=== PATIENT | female | born 1955 | race Caucasian/White ===

== ENCOUNTER 2017-08-22 14:45 | Emergency (ER) | payer OTHER ==
[2017-08-22] MEDS ORDERED: Ketorolac 60 MG/2 ML SDV IM ONE (15:00)
[2017-08-22 15:02] VITALS: BP 138/73
--- NOTE | 2017-08-22 15:13 | EDM.PDOC ---
ED HPI GENERAL MEDICAL PROBLEM - General Chief Complaint: Upper Extremity Injury/Pain Stated Complaint: FALL...LEFT WRIST INJURY AND TAILBONE Time Seen by Provider: 08/22/17 14:50 Source of Information: Reports: Patient - History of Present Illness INITIAL COMMENTS - FREE TEXT/NARRATIVE: 62 YO WF presents to ER after slip and fall while ice skating today. Pt reports she lost her balance and fell backward landing on her buttock and breaking her fall with her left side/wrist. Pt denies any head injury or loss of consciousness. Pt complaining of right wrist and low back pain. Pt able to ambulate with minimal difficulty. Onset: Today Duration: Hour(s): (1) Location: Reports: Back, Upper Extremity, Left Quality: Reports: Ache Severity: Mild Improves with: Reports: Rest Worsens with: Reports: Movement Context: Reports: Trauma Associated Symptoms: Reports: No Other Symptoms Left Wrist Pain Score (Numeric/FACES): 9 Bilateral Lower Back Pain Score (Numeric/FACES): 10 - Related Data Allergies Allergy/AdvReac Type Severity Reaction Status Date / Time adalimumab [From Humira] Allergy Hives Verified 08/22/17 14:54 celecoxib [From Celebrex] Allergy Hives Verified 08/22/17 14:54 cephalexin Allergy Hives Verified 08/22/17 14:54 ciprofloxacin Allergy Hives Verified 08/22/17 14:54 ether Allergy Shortness Verified 08/22/17 14:54 of Breath hydroxychloroquine sulfate Allergy Hives Verified 08/22/17 14:54 [From Plaquenil] naproxen Allergy Hives Verified 08/22/17 14:54 Sulfa (Sulfonamide Allergy Hives Verified 08/22/17 14:54 Antibiotics) sulfamethoxazole Allergy Hives Verified 08/22/17 14:54 [From Bactrim] trimethoprim [From Bactrim] Allergy Hives Verified 08/22/17 14:54 Home Meds: Home Meds Sertraline [Zoloft] 100 mg PO DAILY 10/29/15 [History] Cyclobenzaprine [Flexeril] 10 mg PO TID PRN #10 tab 08/22/17 [Rx] Ibuprofen [Motrin] 600 mg PO Q6H #15 tab 08/22/17 [Rx] Lansoprazole [Prevacid] 30 mg PO DAILY 08/22/17 [History] traMADol [Ultram] 50 mg PO Q6H PRN #10 tab 08/22/17 [Rx] Past Medical History HEENT History: Reports: Impaired Vision Cardiovascular History: Reports: PVD Gastrointestinal History: Reports: GERD, Other (See Below) Other Gastrointestinal History: admitted for acute gastroenteritis Genitourinary History: Reports: Other (See Below) Other Genitourinary History: bladder prolapse, currently held in place with mesh 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: Musculoskeletal History: Reports: RA Neurological History: Reports: Migraines Psychiatric History: Reports: Anxiety, Depression Hematologic History: Reports: Anesthesia Reaction Dermatologic History: Reports: Other (See Below) Other Dermatologic History: Sjogren's syndrome - Infectious Disease History Infectious Disease History: Reports: Chicken Pox, Influenza, Measles - Past Surgical History HEENT Surgical History: Reports: Naso-Sinus Surgery Social & Family History - Family History Cardiac: Reports: Heart Failure Endocrine/Metabolic: Reports: Diabetes, type II Oncologic: Reports: Ovarian - Tobacco Use Smoking Status *Q: Former Smoker Years of Tobacco use: 20 Packs/Tins Daily: 1 Used Tobacco, but Quit: Yes Month Tobacco Last Used: 384 Second Hand Smoke Exposure: No Review of Systems - Review of Systems Review Of Systems: See Below Constitutional: Reports: No Symptoms Eyes: Reports: No Symptoms Ears: Reports: No Symptoms Nose: Reports: No Symptoms Mouth/Throat: Reports: No Symptoms Respiratory: Reports: No Symptoms Cardiovascular: Reports: No Symptoms GI/Abdominal: Reports: No Symptoms Genitourinary: Reports: No Symptoms Musculoskeletal: Reports: Back Pain, Other (left wrist pain) Skin: Reports: No Symptoms Neurological: Reports: No Symptoms Psychiatric: Reports: No Symptoms ED EXAM, GENERAL - Physical Exam Exam: See Below Exam Limited By: No Limitations General Appearance: Alert, WD/WN, No Apparent Distress Eye Exam: Bilateral Eye: PERRL Throat/Mouth: Normal Inspection, Normal Lips, Normal Teeth, Normal Gums, Normal Oropharynx, Normal Voice, No Airway Compromise Head: Atraumatic, Normocephalic Neck: Normal Inspection, Supple, Non-Tender, Full Range of Motion Respiratory/Chest: No Respiratory Distress, Lungs Clear, Normal Breath Sounds, No Accessory Muscle Use, Chest Non-Tender Cardiovascular: Normal Peripheral Pulses, Regular Rate, Rhythm, No Edema, No Gallop, No JVD, No Murmur, No Rub GI/Abdominal: Normal Bowel Sounds, Soft, Non-Tender, No Organomegaly, No Distention, No Abnormal Bruit, No Mass Back Exam: Full Range of Motion, Muscle Spasm, Paraspinal Tenderness (right side lumbar spine). No: Vertebral Tenderness Extremities: Normal Capillary Refill, Arm Pain (left wrist pain) Neurological: Alert, Oriented, CN II-XII Intact, Normal Cognition, Normal Gait, Normal Reflexes, No Motor/Sensory Deficits Course - Vital Signs Last Recorded V/S: Last Vital Signs Temp 36.3 C 08/22/17 14:57 Pulse 72 08/22/17 14:57 Resp 16 08/22/17 14:57 BP 138/73 08/22/17 14:57 Pulse Ox 97 08/22/17 14:57 - Orders/Labs/Meds Orders: Active Orders 24 hr Category Date Time Status Lumbar Spine 2 or 3V [CR] Stat Exams 08/22/17 15:00 Ordered Wrist Comp Min 3V Lt [CR] Stat Exams 08/22/17 15:00 Ordered Meds: Medications Discontinued Medications Generic Name Dose Route Start Last Admin Trade Name Freq PRN Reason Stop Dose Admin Ketorolac Tromethamine 60 mg 08/22/17 15:00 08/22/17 15:05 Toradol IM 08/22/17 15:01 60 mg ONETIME ONE Administration - Radiology Interpretation Free Text/Narrative:: right wrist- comminuted impacted left distal radius fracture lumbar spine- NAD Departure - Departure Time of Disposition: 15:50 Disposition: Home, Self-Care 01 Condition: Good Clinical Impression: Fracture of radius Qualifiers: Encounter type: initial encounter Radius location: distal Fracture type: closed Laterality: left Lumbar strain Qualifiers: Encounter type: initial encounter Qualified Code(s): S39.012A - Strain of muscle, fascia and tendon of lower back, initial encounter - Discharge Information Prescriptions: Cyclobenzaprine [Flexeril] 10 mg PO TID PRN #10 tab PRN Reason: Muscle Spasm Ibuprofen [Motrin] 600 mg PO Q6H #15 tab traMADol [Ultram] 50 mg PO Q6H PRN #10 tab PRN Reason: Pain Instructions: Wrist Fracture Treated With Immobilization, [id number], Cast or Splint Care, [id number], Back Pain, Adult Referrals: Liam Garcia [employer] [Primary Care Provider] - Forms: ED Department Discharge - My Orders Last 24 Hours: My Active Orders 08/22/17 15:00 Lumbar Spine 2 or 3V [CR] Stat Wrist Comp Min 3V Lt [CR] Stat - Assessment/Plan Last 24 Hours: My Active Orders 08/22/17 15:00 Lumbar Spine 2 or 3V [CR] Stat Wrist Comp Min 3V Lt [CR] Stat Assessment:: 1. comminuted and impacted nondisplaced distal radius fracture 2. lumbar contusion/sprain Plan: 1.left thumb spica for immobilization 2. discharge home 3. motrin 600mg po q6/flexeril 10mg po tid prn/ultram 50mg po q6 for pain PRN 4. follow up with ortho Dr Holder for further management of wrist fracture 5. return to ER for wrosening symptoms
[2017-08-22] MEDS ORDERED: Cyclobenzaprine 10 MG Tab PO PRN ×2 (15:53→18:42)
[2017-08-22] MEDS ORDERED: Ibuprofen 600 MG Tab PO SCH (16:00)
[2017-08-22] MEDS ORDERED: traMADol 50 MG Tab PO SCH (16:00)
[2017-08-22] MEDS ORDERED: traMADol 50 MG Tab PO PRN (16:00)
[2017-08-22] MEDS ORDERED: Ibuprofen 600 MG Tab PO PRN (18:43)
== END 2017-08-22 16:35 | disposition home or self-care (01) ==
LOC: KA.ED 14:45
DX: S52.572A Other intraarticular fracture of lower end of left radius, initial encounter for closed fracture (principal); W00.0XXA Fall on same level due to ice and snow, initial encounter; Z88.1 Allergy status to other antibiotic agents; Z88.8 Allergy status to other drugs, medicaments and biological substances; Z88.2 Allergy status to sulfonamides; Z79.899 Other long term (current) drug therapy; Z87.891 Personal history of nicotine dependence
CPT/HCPCS: 29125; 72100; 73110-LT; 96372; 99283; A9270-GY; J1885

== ENCOUNTER 2022-12-07 21:15 | Emergency (ER) | payer OTHER ==
[2022-12-07 22:00] LABS: BASOPHILS ABSOLUTE AUTO 0.01 10^3/uL (0.00-0.10); BASOPHILS PERCENT AUTO 0.1 % (0.0-1.0); EOSINOPHILS ABSOLUTE AUTO 0.12 10^3/uL (0.10-0.30); EOSINOPHILS PERCENT AUTO 1.5 % (1.0-3.0); HEMATOCRIT 42.3 % (37.0-47.0); HEMOGLOBIN 13.6 g/dL (12.0-16.0); LYMPHOCYTES ABSOLUTE AUTO 1.35 10^3/uL (1.00-4.00); LYMPHOCYTES PERCENT AUTO 16.9 % (20.0-40.0); MEAN CORPUSCULAR HEMOGLOBIN 27.1 pg (27.0-31.0); MEAN CORPUSCULAR HGB CONC 32.2 g/dL (32.0-36.0); MEAN CORPUSCULAR VOLUME 84.4 fL (82.0-92.0); MEAN PLATELET VOLUME 10.4 fL (7.4-10.4); MONOCYTES ABSOLUTE AUTO 0.29 10^3/uL (0.10-0.80); MONOCYTES PERCENT AUTO 3.6 % (2.0-8.0); NEUTROPHILS ABSOLUTE AUTO 6.21 10^3/uL (2.50-7.00); NEUTROPHILS PERCENT AUTO 77.9 % (50.0-70.0); PLATELET COUNT,PLT 128 10^3/uL (150-400); RED BLOOD CELL COUNT 5.01 10^6/uL (3.80-5.50); RED CELL DISTRIBUTION WIDTH 13.2 % (11.5-14.5); WHITE BLOOD CELL COUNT,WBC 7.98 10^3/uL (5.00-10.00)
[2022-12-07] MEDS ORDERED: Phenazopyridine 100 MG Tab PO ONE (22:00)
[2022-12-07 22:06] LABS: APPEARANCE,URINE SLIGHTLY CLOUDY (CLEAR); BILIRUBIN,URINE MODERATE (NEGATIVE); COLOR,URINE RED (YELLOW); GLUCOSE,URINE NEGATIVE (NEGATIVE); KETONES,URINE 15 mg/dL (NEGATIVE); LEUKOCYTE ESTERASE,URINE LARGE (NEGATIVE); NITRITE,URINE POSITIVE (NEGATIVE); OCCULT BLOOD,URINE LARGE (NEGATIVE); PROTEIN,URINE >=300 mg/dL (NEGATIVE)
[2022-12-07 22:10] LABS: BACTERIA,URINE RARE /HPF (NONE TO FEW); EPITHELIAL CELLS,URINE RARE /LPF; RBC,URINE >100 /HPF (0-5)
[2022-12-07 22:18] LABS: ALBUMIN 4.1 g/dL (3.40-5.00); ANION GAP 11.7 mmol/L (5-15); BILIRUBIN TOTAL 0.3 mg/dL (0.2-1.0); CALCIUM 9.1 mg/dL (8.7-10.3); CARBON DIOXIDE,CO2 31.1 mmol/L (21.0-32.0); CREATININE 0.84 mg/dL (0.51-1.17); EST CRCL DRUG DOSING (CG) 54.98 mL/min; POTASSIUM,K 4.8 mmol/L (3.5-5.1); PROTEIN TOTAL,TP 7.5 g/dL (6.4-8.2)
[2022-12-07] MEDS ORDERED: Nitrofurantoin Monohydrate/Macrocrystalline 100 MG Cap PO ONE (22:22)
[2022-12-07] MEDS ORDERED: Phenazopyridine 100 MG Tab ONE (22:29)
[2022-12-07 23:00] VITALS: BP 142/76; PULSE 70
[2022-12-08] MEDS ORDERED: Phenazopyridine 100 MG Tab PO ONE (08:00)
== END 2022-12-07 22:45 | disposition home or self-care (01) ==
LOC: KA.ED 21:15
DX: N39.0 Urinary tract infection, site not specified (principal); R31.9 Hematuria, unspecified; I10 Essential (primary) hypertension; K21.9 Gastro-esophageal reflux disease without esophagitis; Z88.0 Allergy status to penicillin; Z88.1 Allergy status to other antibiotic agents; Z88.2 Allergy status to sulfonamides; Z88.6 Allergy status to analgesic agent; Z79.899 Other long term (current) drug therapy
CPT/HCPCS: 36415; 80053; 81001; 85025; 99283; 99284; A9270

== ENCOUNTER 2023-12-18 12:33 | Emergency (ER) | payer OTHER ==
[2023-12-18 13:09] LABS: BASOPHILS ABSOLUTE AUTO 0.01 10^3/uL (0.00-0.10); BASOPHILS PERCENT AUTO 0.2 % (0.0-1.0); EOSINOPHILS ABSOLUTE AUTO 0.06 10^3/uL (0.10-0.30); EOSINOPHILS PERCENT AUTO 1.1 % (1.0-3.0); HEMATOCRIT 45.6 % (37.0-47.0); HEMOGLOBIN 15.9 g/dL (12.0-16.0); IMMATURE GRAN ABSOLUTE AUTO 0.01 10^3/uL (0.00-0.50); IMMATURE GRAN PERCENT AUTO 0.2 % (0.0-5.0); LYMPHOCYTES ABSOLUTE AUTO 1.09 10^3/uL (1.00-4.00); LYMPHOCYTES PERCENT AUTO 20.7 % (20.0-40.0); MEAN CORPUSCULAR HEMOGLOBIN 29.6 pg (27.0-31.0); MEAN CORPUSCULAR HGB CONC 34.9 g/dL (32.0-36.0); MEAN CORPUSCULAR VOLUME 84.8 fL (82.0-92.0); MONOCYTES ABSOLUTE AUTO 0.37 10^3/uL (0.10-0.80); NEUTROPHILS ABSOLUTE AUTO 3.73 10^3/uL (2.50-7.00); NEUTROPHILS PERCENT AUTO 70.8 % (50.0-70.0); PLATELET COUNT,PLT 124 10^3/uL (150-400); RED BLOOD CELL COUNT 5.38 10^6/uL (3.80-5.50); RED CELL DISTRIBUTION WIDTH 13.3 % (11.5-14.5); WHITE BLOOD CELL COUNT,WBC 5.27 10^3/uL (5.00-10.00)
[2023-12-18 13:26] LABS: ALBUMIN 4.37 g/dL (3.40-5.00); ANION GAP 10.9 mmol/L (5-15); BILIRUBIN TOTAL 0.9 mg/dL (0.2-1.0); CALCIUM 9.5 mg/dL (8.7-10.3); CARBON DIOXIDE,CO2 28.6 mmol/L (21.0-32.0); CREATININE 0.67 mg/dL (0.51-1.17); EST CRCL DRUG DOSING (CG) 71.32 mL/min; POTASSIUM,K 3.5 mmol/L (3.5-5.1); PROTEIN TOTAL,TP 8.2 g/dL (6.4-8.2)
[2023-12-18] MEDS: Sodium Chloride 0.9% 1,000 ML IV ONE ×2 (13:28→14:31)
[2023-12-18] MEDS: Ondansetron 4 MG/2 ML SDV IVPUSH ONE (13:45)
[2023-12-18] MEDS: Sodium Chloride 0.9% 50 ML IV SCH (14:57)
[2023-12-18] MEDS: Iopamidol 755 Mg/ML 100 ML Bottle IV ONE (14:57)
[2023-12-18 15:12] LABS: INFLUENZA A NAA NEGATIVE (NEGATIVE); INFLUENZA B NAA NEGATIVE (NEGATIVE); RESPIRATORY SYNCYTIAL VIR NAA NEGATIVE (NEGATIVE)
[2023-12-18 15:16] LABS: CORONAVIRUS COVID-19 NAA NEGATIVE (NEGATIVE)
[2023-12-18 15:29] VITALS: BP 141/64; PULSE 71
== END 2023-12-18 16:25 | disposition home or self-care (01) ==
LOC: KA.ED 12:33
DX: E86.0 Dehydration (principal); R10.13 Epigastric pain; I10 Essential (primary) hypertension; Z88.8 Allergy status to other drugs, medicaments and biological substances; Z88.1 Allergy status to other antibiotic agents; Z88.0 Allergy status to penicillin; Z88.2 Allergy status to sulfonamides; Z79.51 Long term (current) use of inhaled steroids; Z79.899 Other long term (current) drug therapy; Z90.49 Acquired absence of other specified parts of digestive tract; Z90.710 Acquired absence of both cervix and uterus
CPT/HCPCS: 0241U; 36415; 74177; 80053; 83690; 85025; 96361; 96374; 99284; J2405; J3490; J7030; Q9967

== ENCOUNTER 2024-07-03 11:28 | Emergency (ER) | payer MEDICARE, OTHER ==
[2024-07-03] MEDS: Ondansetron 4 MG/2 ML SDV IVPUSH ONE (12:01)
[2024-07-03] MEDS: Sodium Chloride 0.9% 1,000 ML IV ONE ×2 (12:01→13:06)
[2024-07-03 12:02] LABS: ALANINE AMINOTRANSFERASE,ALT 20 U/L (14-63); ALBUMIN 4.02 g/dL (3.40-5.00); ALKALINE PHOSPHATASE 80 U/L (46-116); ANION GAP 12.7 mmol/L (5-15); ASPARTATE AMNIOTRANSFERASE,AST 21 U/L (15-37); BASOPHILS ABSOLUTE AUTO 0.01 10^3/uL (0.00-0.10); BASOPHILS PERCENT AUTO 0.3 % (0.0-1.0); BILIRUBIN TOTAL 0.6 mg/dL (0.2-1.0); BLOOD UREA NITROGEN,BUN 8 mg/dL (7-18); CALCIUM 8.9 mg/dL (8.7-10.3); CARBON DIOXIDE,CO2 29.9 mmol/L (21.0-32.0); CHLORIDE,CL 101 mmol/L (98-107); CREATININE 0.72 mg/dL (0.51-1.17); EOSINOPHILS ABSOLUTE AUTO 0.01 10^3/uL (0.10-0.30); EOSINOPHILS PERCENT AUTO 0.3 % (1.0-3.0); GLUCOSE RANDOM 129 mg/dL (70-140); HEMATOCRIT 42.4 % (37.0-47.0); HEMOGLOBIN 14.3 g/dL (12.0-16.0); LYMPHOCYTES ABSOLUTE AUTO 1.07 10^3/uL (1.00-4.00); LYMPHOCYTES PERCENT AUTO 29.3 % (20.0-40.0); MEAN CORPUSCULAR HGB CONC 33.7 g/dL (32.0-36.0); MEAN CORPUSCULAR VOLUME 88.9 fL (82.0-92.0); MONOCYTES ABSOLUTE AUTO 0.31 10^3/uL (0.10-0.80); MONOCYTES PERCENT AUTO 8.5 % (2.0-8.0); NEUTROPHILS ABSOLUTE AUTO 2.25 10^3/uL (2.50-7.00); NEUTROPHILS PERCENT AUTO 61.6 % (50.0-70.0); PLATELET COUNT,PLT 113 10^3/uL (150-400); POTASSIUM,K 4.6 mmol/L (3.5-5.1); PROTEIN TOTAL,TP 7.1 g/dL (6.4-8.2); RED BLOOD CELL COUNT 4.77 10^6/uL (3.80-5.50); RED CELL DISTRIBUTION WIDTH 12.7 % (11.5-14.5); SODIUM,NA 139 mmol/L (136-145); WHITE BLOOD CELL COUNT,WBC 3.65 10^3/uL (5.00-10.00)
[2024-07-03 12:03] LABS: ESTIMATED GFR 92 mL/min (>=60)
[2024-07-03 12:06] VITALS: BP 155/80; PULSE 63
[2024-07-03] MEDS: Ondansetron 4 MG Tab.DIS PO ONE (13:10)
== END 2024-07-03 14:36 | disposition home or self-care (01) ==
LOC: KA.ED 11:28
DX: R11.2 Nausea with vomiting, unspecified (principal); R19.7 Diarrhea, unspecified; I10 Essential (primary) hypertension; K21.9 Gastro-esophageal reflux disease without esophagitis; Z90.49 Acquired absence of other specified parts of digestive tract; Z90.710 Acquired absence of both cervix and uterus; Z88.0 Allergy status to penicillin; Z88.1 Allergy status to other antibiotic agents; Z88.2 Allergy status to sulfonamides; Z88.8 Allergy status to other drugs, medicaments and biological substances; Z79.51 Long term (current) use of inhaled steroids; Z79.899 Other long term (current) drug therapy
CPT/HCPCS: 36415; 80053; 85025; 96361; 96374; 99283; 99284; A9270; J2405; J7030

== ENCOUNTER 2025-07-02 11:00 | Emergency (ER) | payer MEDICARE, OTHER ==
[2025-07-02 11:25] LABS: BASOPHILS ABSOLUTE AUTO 0.01 10^3/uL (0.00-0.10); BASOPHILS PERCENT AUTO 0.2 % (0.0-1.0); EOSINOPHILS ABSOLUTE AUTO 0.03 10^3/uL (0.10-0.30); EOSINOPHILS PERCENT AUTO 0.6 % (1.0-3.0); IMMATURE GRAN ABSOLUTE AUTO 0.00 10^3/uL (0.00-0.04); IMMATURE GRAN PERCENT AUTO 0.0 % (0.0-0.4); LYMPHOCYTES ABSOLUTE AUTO 0.95 10^3/uL (1.00-4.00); LYMPHOCYTES PERCENT AUTO 18.2 % (20.0-40.0); MEAN PLATELET VOLUME 10.2 fL (7.4-10.4); MONOCYTES ABSOLUTE AUTO 0.33 10^3/uL (0.10-0.80); MONOCYTES PERCENT AUTO 6.3 % (2.0-8.0); NEUTROPHILS ABSOLUTE AUTO 3.89 10^3/uL (2.50-7.00); NEUTROPHILS PERCENT AUTO 74.7 % (50.0-70.0); PLATELET COUNT,PLT 105 10^3/uL (150-400); RED BLOOD CELL COUNT 4.41 10^6/uL (3.80-5.50); RED CELL DISTRIBUTION WIDTH 12.5 % (11.5-14.5); WHITE BLOOD CELL COUNT,WBC 5.21 10^3/uL (5.00-10.00)
[2025-07-02 11:26] VITALS: PULSE 76
[2025-07-02 11:44] LABS: ALANINE AMINOTRANSFERASE,ALT 15 U/L (14-63); ASPARTATE AMNIOTRANSFERASE,AST 11 U/L (15-37); BILIRUBIN TOTAL 0.6 mg/dL (0.2-1.0); BLOOD UREA NITROGEN,BUN 11 mg/dL (7-18); CARBON DIOXIDE,CO2 28.8 mmol/L (21.0-32.0); CHLORIDE,CL 105 mmol/L (98-107); CREATININE 0.68 mg/dL (0.51-1.17); EST CRCL DRUG DOSING (CG) 68.37 mL/min; ESTIMATED GFR 95 mL/min (>=60); GLUCOSE RANDOM 128 mg/dL (70-140); POTASSIUM,K 4.0 mmol/L (3.5-5.1); PROTEIN TOTAL,TP 7.1 g/dL (6.4-8.2); SODIUM,NA 141 mmol/L (136-145)
[2025-07-02 11:52] LABS: INR 1.0 (0.9-1.1)
[2025-07-02 13:00] VITALS: BP 129/75
== END 2025-07-02 12:08 | disposition home or self-care (01) ==
LOC: KA.ED 11:00
DX: R07.89 Other chest pain (principal); I10 Essential (primary) hypertension; Z88.1 Allergy status to other antibiotic agents; Z88.8 Allergy status to other drugs, medicaments and biological substances; Z88.2 Allergy status to sulfonamides; Z79.899 Other long term (current) drug therapy; Z90.710 Acquired absence of both cervix and uterus; Z90.49 Acquired absence of other specified parts of digestive tract
CPT/HCPCS: 36415; 71045; 80053; 83605; 84484; 85025; 85610; 86140; 99285